=== PATIENT | male | born 1945 | race Caucasian/White ===

== ENCOUNTER → 2021-01-12 | Day surgery (SDC) | payer OTHER ==
[~2021-01-12] VITALS: Ht 167.6 cm; Wt 103.1 kg
[~2021-01-12] MED LIST: ALEVE220 M1 PO; ALLERGY RELIEF25 MG PO; ALLOPURINOL 30300 MG PO; AMARYL2 MG PO; ASPIRIN EC81 MG PO; ATENOLOL50 MG PO; ATORVASTATIN CA20 MG PO; BANABA LEAF PO; BLACK CHERRY PO; DESYREL50 MG PO; GARLIC1000 MG PO; GYMNEMA SYLVESTR1 GM PO; MELATONIN5 M2 PO; METFORMIN HCL500 M3 PO; NORCO 5-325 TA1 EACH PO; OSTEO BI-FLEX1 EAC1 PO; TRULICITY0.75 MG/0. SC; TUMERIC PO
[2021-01-12 08:09] LABS: HCT 46.1 % (42.0-52.0); HGB 15.7 g/dl (13.2-18.0); MCH 29.8 pg (25.0-31.0); MCHC 34.1 g/dL (32.0-36.0); MCV 87.6 fL (78.0-100.0); MPV 9.4 fL (6.0-9.5); RBC 5.26 M/uL (4.70-6.00); RDW 13.7 % (11.5-14.0); WBC 5.6 K/uL (4.0-10.5)
[2021-01-12 08:26] LABS: ALBUMIN 3.8 g/dL (3.4-5.0); BILIRUBIN - TOTAL 0.9 mg/dL (0.2-1.0); BUN/CREAT RATIO (CALC) 21.6 RATIO; CREATININE 0.88 mg/dL (0.67-1.17); GLOBULIN (CALCULATION) 3.7 g/dL; POTASSIUM 4.2 mmol/L (3.5-5.1); TOTAL PROTEIN 7.5 g/dL (6.4-8.2)
== END | disposition home or self-care (01) ==
LOC: FAS 07:34
PROVIDERS: Surgery
DX: Z12.11 Encounter for screening for malignant neoplasm of colon (principal); K64.1 Second degree hemorrhoids; I10 Essential (primary) hypertension; M10.9 Gout, unspecified; E11.9 Type 2 diabetes mellitus without complications; E78.5 Hyperlipidemia, unspecified; K21.9 Gastro-esophageal reflux disease without esophagitis; E66.01 Morbid (severe) obesity due to excess calories; Z88.8 Allergy status to other drugs, medicaments and biological substances; Z79.84 Long term (current) use of oral hypoglycemic drugs; Z79.82 Long term (current) use of aspirin; Z79.899 Other long term (current) drug therapy
CPT/HCPCS: 36415; 80053; J1100; J2704; J7120